=== PATIENT | female | born 1935 | race Caucasian/White ===

== ENCOUNTER 2017-04-17 14:37 | Emergency (ER) | payer MEDICARE, BC ==
[~2017-04-17] VITALS: Ht 167.6 cm; Wt 75.0 kg
[2017-04-17 14:46] VITALS: Ht 167.6 cm; Wt 75.0 kg
[2017-04-17 15:02] VITALS: BP 110/54; PULSE 93; RESP 17
--- NOTE | 2017-04-17 15:19 | ERD ---
ER Documentation Chief Complaint Chief Complaint [facility] FOR "NOT ACTING RIGHT" PT A&OX4. HPI Patient is an 82-year-old female who lives in assisted living facility and was noted by staff to be more irritable lately. Apparently she has been yelling at other residents and has been more withdrawn at times. They also state that she has been eating less. The patient denies being irritable, denies depression, denies suicidal ideation, homicidal ideation, auditory hallucinations. She reports that she is sleeping well but not too much and has been eating well. She denies having any physical complaints such as headache, dizziness, fever, chest or abdominal pain. ROS All systems reviewed and are negative except as per history of present illness. PMhx/Soc Past medical history: None Past surgical history: Left knee replacement, left hip replacement, lumpectomy Social history: Denies tobacco or alcohol FmHx Noncontributory Physical Exam Vitals Vital Signs Date Time Temp Pulse Resp B/P Pulse Ox O2 Delivery O2 Flow Rate FiO2 04/17/17 15:02 93 17 110/54 100 Room Air 04/17/17 14:46 98.2 86 19 128/70 99 Physical Exam Const: Alert, no acute distress Head: Atraumatic Eyes: Normal Conjunctiva, No pallor, no icterus ENT: Normal External Ears, Nose and Mouth. Mucous membranes moist Neck: Full range of motion. No meningismus. Resp: Clear to auscultation bilaterally, No wheezes, no rales Cardio: Regular rate and rhythm, no murmurs Abd: Soft, non tender, non distended. Skin: No petechiae or rashes Back: No midline or flank tenderness Ext: No cyanosis, or edema Neur: Awake and alert, Oriented 4. Cranial nerves II through XII intact bilaterally, strength and sensation full in 4 extremities, no pronator drift. Psych: Normal Mood and Slightly irritable Affect. Acting appropriately, interactive Procedures/MDM MDM: Patient is an 82-year-old female sent to the ER from her assisted living due to behavioral abnormality. She was noted to appear more irritable and to be yelling at other residents. In the ER, the patient does appear slightly irritable, but is acting appropriately and is alert and oriented. She has no acute medical complaint. She has normal vital signs. I believe that she is stable for PMD follow-up. She denies depression or anxiety, but may have underlying depression. She is tolerating oral intake. She does not appear intoxicated and denies ingestion. Departure Diagnosis: Primary Impression: Episode of abnormal behavior Condition: TANK Martell MD Apr 17, 2017 15:19
== END 2017-04-17 16:25 | disposition home or self-care (01) ==
LOC: E/R 14:37
DX: F91.9 Conduct disorder, unspecified (principal); Z96.642 Presence of left artificial hip joint; Z96.652 Presence of left artificial knee joint
CPT/HCPCS: 99284